=== PATIENT | female | born 1990 | race Caucasian/White ===

== ENCOUNTER 2016-08-24 17:55 | Emergency (ER) | payer BC ==
--- NOTE | 2016-08-24 19:00 | PD ---
HPI Travel History International Travel<30 Days: No Contact w/Intl Traveler<30Days: No Known Affected Area: No History of Present Illness HPI This patient is a 26-year-old 2 para 1 EDC is October 28, 2016 presently at 30 weeks and 5 days she presents with chief complaint of pressure in her suprapubic area for about 2 or 3 hours had contractions earlier but they stopped no ruptured membranes no vaginal bleeding the baby is active Patient has been walking around the mole for the past several hours care with Dr. Linn course is significant for anemia Increased urgency frequency hesitancy and dribbling patient does have a history of a UTI previously prior to No fever no chills no nausea no vomiting no back pain no gela contractions no discharge odors or itching no headaches or blurred vision no History Past Medical History Narrative Medical No known drug allergies history of mitral valve prolapse as a child resolved Obstetric History Obstetric History Normal spontaneous vaginal delivery 1 Past Surgical History Surgical History: No Previous Surgery Family History Family History: Negative Social History Alcohol Use: No Tobacco Use: No Substance Abuse: No Allergies-Medications Comments No known drug allergies Review of Systems General / Constitutional: No: Fever, Weight Gain, Weight Loss, Chills, Other Eyes: No: Diploplia, Blurred Vision, Visual changes, Pain, Photophobia, Other HENT: No: Headaches, Vertigo, Dental Difficulties, Lightheadedness, Other Cardiovascular: No: Irregular Rhythm, Chest Pain or Discomfort, Palpitations, Tachycardia, Syncope, Varicosities, Edema, Cyanosis, Other Respiratory: No: Cough, Short of Breath, Wheezing, Other Gastrointestinal: Abdominal Pain (as per history of present illness) Genitourinary: Urgency, Frequency, Hesitancy, Dribbling Musculoskeletal: No: Limited ROM, Weakness, Cramping, Edema, Pain, Other Neurologic: No: Weakness, Dizziness, Syncope, Focal Abnormalities, Coordination Problem, Headache, Slurred Speech, Seizures, Other Physical Exam Narrative GENERAL: Well-nourished, well-developed patient. Alert oriented 3 and cooperative in no acute distress SKIN: Warm and dry. HEAD: Normocephalic and atraumatic. EYES: No scleral icterus. No injection or drainage. ENT: No nasal drainage noted. Mucous membranes pink. Airway patent. NECK: Supple, trachea midline. No JVD. CARDIOVASCULAR: Regular rate and rhythm without murmurs, gallops, or rubs. RESPIRATORY: Breath sounds equal bilaterally. No accessory muscle use. ABDOMEN/GI: Gravid consistent with stated gestational age soft nontender no palpable contractions no epigastric or right upper quadrant tenderness mild tenderness over the right round ligament Gravid to [-] weeks size Fundal Height: [-] GENITOURINARY: Speculum exam is done no discharge no fluid no blood in the vagina the cervix is visibly closed External Genitalia: intact and normal in appearance BUS glands: [-] Cervix: [-] Posterior firm Dilatation: [-] 0 Effacement: [-] 0 Station: [-] Ballotable Presentation: [-] Vertex Membranes: [intact Mild uterine irritability FHT's: Category: [-] 1 Baseline: [-] 150 Reactive: [-] + Variability: [-] Moderate [id number] variability Decels: [-]0 EXTREMITIES: No cyanosis or edema. 2+ reflexes BACK: Nontender without obvious deformity. No CVA tenderness. NEUROLOGICAL: Awake and alert. Motor and sensory grossly within normal limits. Five out of 5 muscle strength in all muscle groups. Normal speech. Data Data Vital Signs Reviewed: Yes (blood pressure 121/62 pulse is 95 she is afebrile) MDM Medical Record Reviewed: No Interpretation(s) 26-year-old at 30 weeks and 5 days Not in labor Rule out UTI Uterine irritability possibly related to UTI [place] Skeletal skeletal pain Narrative Course / MDM Urine is negative cultures not indicated Category 1 tracing No contractions Cervix is closed on physical exam Plan External monitoring By mouth fluid hydration Urinalysis Reevaluation Physician Communication Spoke with Dr. Danielson who is director personal agrees with the evaluation and management will discharge patient home rest by mouth fluid hydration kick counts follow-up in the a.m. with her physician Diagnosis Diagnosis: Primary Impression: Musculoskeletal pain Additional Impressions: 30 weeks gestation of [place]' contraction Disposition: DISCHARGE HOME Condition: Stable Carly Roberson MD Aug 24, 2016 19:00
[2016-08-24 19:08] VITALS: TEMP 98
[2016-08-24 20:01] LABS: BLOOD, URINE NEG (NEG); COMMENT (UR) CULT NOT INDICATED; CULTURE IF INDICATED CULT NOT INDICATED; GLUCOSE,URINE NEG (NEG); KETONE, URINE 10 mg/dL (NEG); MUCUS URINE FEW /lpf (OCC); NITRITE,URINE NEG (NEG); SQUAMOUS EPITHELIAL CELL URINE 3 /hpf (0-5); URINE COLOR YELLOW (YELLW/STRAW)
== END 2016-08-24 20:20 | disposition home or self-care (01) ==
LOC: HOBED 17:55
DX: O47.03 False labor before 37 completed weeks of gestation, third trimester (principal); Z3A.30 30 weeks gestation of pregnancy; M79.1 Myalgia
CPT/HCPCS: 81001; 99284

== ENCOUNTER 2016-11-01 19:59 | Inpatient (IN) | payer BC ==
[2016-11-01] MEDS: LACTATED RINGER'S 1000 ML INJ 1,000 ML IV SCH (20:39)
[2016-11-01] MEDS ORDERED: SODIUM CHLOR 0.9% 1000 ML INJ 1,000 ML OTHER PRN (20:57)
[2016-11-01] MEDS ORDERED: LACTATED RINGER'S 1000 ML INJ 1,000 ML IV PRN (20:57)
[2016-11-01] MEDS ORDERED: MINERAL OIL 10 ML VIAL TOPICAL PRN (21:00)
[2016-11-01] MEDS ORDERED: OXYTOCIN 30 UNITS-500ML PREMIX 500 ML IV ONE (21:00)
[2016-11-01] MEDS ORDERED: MISOPROSTOL 25 MCG SUPP VAGINAL ONE (21:00)
[2016-11-01] MEDS ORDERED: CITRIC ACID-SODIUM CITRATE LIQ 30 ML UDC PO SCH (21:00)
[2016-11-01] MEDS ORDERED: ONDANSETRON HCL 4 MG/2 ML VIAL IV PRN (21:00)
[2016-11-01] MEDS ORDERED: SODIUM CHLORID 0.9% 500 ML INJ 500 ML IV PRN (21:00)
[2016-11-01] MEDS ORDERED: LIDOCAINE HCL 1% 50 ML VIAL INFIL PRN (21:00)
[2016-11-01] MEDS ORDERED: LIDOCAINE HCL 1% 50 ML VIAL I-DERMAL PRN (21:00)
[2016-11-01] MEDS ORDERED: ZOLPIDEM TARTRATE 5 MG TAB PO PRN (21:00)
[2016-11-01] MEDS ORDERED: SODIUM CHLOR 0.9% 1000 ML INJ 1,000 ML IV PRN (21:17)
[2016-11-01 21:40] LABS: AUTOMATED NEUTROPHIL # 7.8 TH/MM3 (1.8-7.7); BASOPHIL # 0.1 TH/MM3 (0-0.2); BASOPHIL % 0.6 % (0.0-2.0); EOSINOPHIL # 0.1 TH/MM3 (0-0.4); EOSINOPHIL % 0.5 % (0.0-4.0); HEMO FLAGS DIFF FINAL; LYMPH % 16.1 % (9.0-44.0); LYMPHOCYTE # 1.7 TH/MM3 (1.0-4.8); MEAN CELL VOLUME 78.7 FL (80.0-100.0); MEAN CORPUSCULAR HEMOGLOBIN 26.1 PG (27.0-34.0); MEAN CORPUSCULAR HGB CONC 33.2 % (32.0-36.0); MONO % 6.8 % (0.0-8.0); PLATELET COUNT 288 TH/MM3 (150-450); RED BLOOD COUNT 3.82 MIL/MM3 (4.00-5.30); RED CELL DISTRIBUTION WIDTH 14.4 % (11.6-17.2); WHITE BLOOD COUNT 10.3 TH/MM3 (4.0-11.0)
[2016-11-01 21:43] LABS: BACTERIA, URINE FEW /hpf; BLOOD, URINE NEG (NEG); COMMENT (UR) CULTURE INDICATED; CULTURE IF INDICATED CULTURE INDICATED; GLUCOSE,URINE NEG (NEG); KETONE, URINE NEG (NEG); MUCUS URINE MOD /lpf (OCC); NITRITE,URINE NEG (NEG); SQUAMOUS EPITHELIAL CELL URINE 6 /hpf (0-5); URINE COLOR YELLOW (YELLW/STRAW)
[2016-11-02] VITALS (90 sets, daily range): BP systolic 87–142; BP diastolic 46–79; PULSE 63–106; RESP 15–20; TEMP 97.6–98; O2SAT 97–100
[2016-11-02] MEDS ORDERED: MISOPROSTOL 25 MCG SUPP VAGINAL PRN (01:00)
[2016-11-02] MEDS: LACTATED RINGER'S 1000 ML INJ 1,000 ML IV SCH ×3 (01:10→14:09)
[2016-11-02] MEDS ORDERED: OXYTOCIN 30 UNITS-500ML PREMIX 500 ML IV SCH (07:00)
[2016-11-02] MEDS ORDERED: OXYTOCIN 30 UNITS-500ML PREMIX 500 ML ONE ×2 (07:16→16:37)
--- NOTE | 2016-11-02 08:58 | HHI.HP ---
HPI Chief Complaint iol at term Date Seen: November 02, 2016 Travel History International Travel<30 Days: No Contact w/Intl Traveler<30Days: No Known Affected Area: No History of Present Illness HPI 26 yo with iup at 40w5d by first trimester u/s. Here for iol at term. + FM, irreg ctx, no lof or vb. She has had 2 doses of misoprostol overnight. Uncomplicated pnc, 23 lb wt gain. Para: 1 : 2 History Past Medical History Narrative Medical mild mvp Obstetric History Obstetric History G! F 38 wk 6 lb 7oz Past Surgical History Narrative Surgical wisdom tooth extraction Family History Family History: Negative Social History Alcohol Use: No Tobacco Use: No Substance Abuse: No Allergies-Medications (Allergen,Severity, Reaction): Coded Allergies: No Known Allergies (Unverified , 11/01/16) Review of Systems General / Constitutional: No: Fever, Weight Gain, Chills, Other Eyes: No: Diploplia, Blurred Vision, Visual changes, Pain, Photophobia HENT: No: Headaches, Vertigo, Lightheadedness Cardiovascular: No: Irregular Rhythm, Chest Pain or Discomfort, Palpitations, Tachycardia, Syncope, Varicosities, Edema, Cyanosis Respiratory: No: Cough, Short of Breath, Other Gastrointestinal: No: Nausea, Vomiting, Diarrhea Genitourinary: No: Decreased Urinary Output, Oliguria Musculoskeletal: No: Limited ROM, Weakness, Cramping, Edema, Pain Skin: No Rash, No Itching, No Dryness, No Lumps, No Change in Pigmentation, No Change in Nails, No Alopecia, No Lesions Neurologic: No: Weakness, Dizziness, Syncope, Focal Abnormalities, Coordination Problem, Headache, Slurred Speech, Seizures Psychiatric: No: Depression, Suicidal Ideations, Homicidal Ideation Endocrine: No: Heat Intolerance, Cold Intolerance, Polydipsia, Polyuria, Other Physical Exam Vital Signs Date Time Temp Pulse Resp B/P Pulse Ox O2 Delivery O2 Flow Rate FiO2 11/02/16 08:11 18 11/02/16 08:02 77 103/68 11/02/16 07:28 18 11/02/16 07:28 79 103/67 11/02/16 07:27 97.6 11/02/16 04:34 18 11/02/16 04:34 98.0 11/02/16 04:34 82 98/46 11/02/16 00:25 97.7 18 11/02/16 00:25 78 104/61 Narrative GENERAL: Well-nourished, well-developed patient. SKIN: Warm and dry. HEAD: Normocephalic and atraumatic. EYES: No scleral icterus. No injection or drainage. ENT: No nasal drainage noted. Mucous membranes pink. Airway patent. NECK: Supple, trachea midline. No JVD. CARDIOVASCULAR: Regular rate and rhythm without murmurs, gallops, or rubs. RESPIRATORY: Breath sounds equal bilaterally. No accessory muscle use. ABDOMEN/GI: Abdomen soft, non-tender, bowel sounds present, no rebound, no guarding Gravid to 40 weeks size Fundal Height: [-] GENITOURINARY: External Genitalia: intact and normal in appearance BUS glands: [-] Cervix: 3-4/50/-2 post, medium consistency, arom blood tinged Presentation:cep Membranes:arom 0905 Uterine Contractions: irreg FHT's: Category: Currently Cat I, had 3 late decels, previously. Now reactive strip EXTREMITIES: No cyanosis or edema. BACK: Nontender without obvious deformity. No CVA tenderness. NEUROLOGICAL: Awake and alert. Motor and sensory grossly within normal limits. Five out of 5 muscle strength in all muscle groups. Normal speech. Data Data Vital Signs Reviewed: Yes Orders Admit To Inpatient (11/01/16 ) Vital Signs (Adult) .Per protocol (11/01/16 20:57) Activity Oob Ad Shadia (11/01/16 20:57) Heart (11/01/16 20:57) Amnioinfusion (11/01/16 20:57) Urinary Catheter Management .ONCE (11/01/16 20:57) Diet Liquid (11/02/16 Breakfast) Lactated Ringer's 1000 Ml Inj (Lr 1000 M (11/01/16 20:57) Lactated Ringer's 1000 Ml Inj (Lr 1000 M (11/01/16 20:57) Sodium Chlorid 0.9% 500 Ml Inj (Ns 500 M (11/01/16 21:00) Sodium Chlor 0.9% 1000 Ml Inj (Ns 1000 M (11/01/16 21:17) Lidocaine 1% Inj (50 Ml) (Xylocaine 1% I (11/01/16 21:00) Citric Acid-Sodium Citrate Liq (Bicitra (11/01/16 21:00) Ondansetron Inj (Zofran Inj) (11/01/16 21:00) Fentanyl Inj (Fentanyl Inj) (11/01/16 21:00) Fentanyl Inj (Fentanyl Inj) (11/01/16 21:00) Complete Blood Count With Diff (11/01/16 20:57) Hold Clot (11/01/16 20:57) Abo/Rh Blood Type (11/01/16 20:57) Urinalysis - C+S If Indicated (11/01/16 20:57) Resp Oxygen Non Rebreathe Mask (11/01/16 ) ^ Epidural / Intrathecal Infus (11/01/16 20:57) Oxytocin 30 Units-500ml Premix (Pitocin (11/01/16 21:00) Lidocaine 1% Inj (50 Ml) (Xylocaine 1% I (11/01/16 21:00) Light Mineral Oil (Muri-Lube Oil) (11/01/16 21:00) Activity Oob Ad Shadia (11/01/16 20:57) ^ Labor Induction (11/01/16 20:57) ^ Vaginal Insert (11/01/16 20:57) ^ Vaginal Lavage (11/01/16 20:57) Heart (11/01/16 20:57) Sodium Chlor 0.9% 1000 Ml Inj (Ns 1000 M (11/01/16 20:57) Misoprostol Supp (Cytotec Supp) (11/01/16 21:00) Misoprostol Supp (Cytotec Supp) (11/02/16 01:00) Zolpidem (Ambien) (11/01/16 21:00) Inpatient Certification (11/01/16 ) Specimen To Be Collected PRN (11/01/16 20:57) Urine Culture (11/01/16 20:21) ^ Non Stress Test (11/02/16 06:52) Response To Medication .Post New Med Administration, Reaction (11/02/16 06:52) ^ Discontinue Medication (11/02/16 06:52) Oxytocin 30 Units-500ml Premix (Pitocin (11/02/16 07:00) Oxytocin 30 Units-500ml Premix (Pitocin (11/02/16 07:16) Labs Laboratory Tests Test 11/01/16 11/01/16 20:21 20:40 Urine Color YELLOW Urine Turbidity HAZY Urine pH 6.0 Urine Specific [place] 1.032 Urine Protein 30 Urine Glucose (UA) NEG Urine Ketones NEG Urine Occult Blood NEG Urine Nitrite NEG Urine Bilirubin NEG Urine Urobilinogen 2.0 Urine Leukocyte Esterase LARGE Urine RBC 1 Urine WBC 39 Urine Squamous Epithelial 6 Cells Urine Bacteria FEW Urine Mucus MOD Microscopic Urinalysis Comment CULTURE INDICATED White Blood Count 10.3 Red Blood Count 3.82 Hemoglobin 10.0 Hematocrit 30.0 Mean Corpuscular Volume 78.7 Mean Corpuscular Hemoglobin 26.1 Mean Corpuscular Hemoglobin 33.2 Concent Red Cell Distribution Width 14.4 Platelet Count 288 Mean Platelet Volume 8.2 Neutrophils (%) (Auto) 76.0 Lymphocytes (%) (Auto) 16.1 Monocytes (%) (Auto) 6.8 Eosinophils (%) (Auto) 0.5 Basophils (%) (Auto) 0.6 Neutrophils # (Auto) 7.8 Lymphocytes # (Auto) 1.7 Monocytes # (Auto) 0.7 Eosinophils # (Auto) 0.1 Basophils # (Auto) 0.1 CBC Comment DIFF FINAL Differential Comment Blood Type AB POSITIVE Band and Hold Date/Time Procedure Status Source Growth 11/01/16 20:21 Urine Culture Received Urine Clean Catch Pending Assessment/Plan Assessment and Plan 26yo with iup at 40w5d desired iol at term 1) IOL- misoprostol suppository overnight, pitocin was started but pt had late decel. Currently reactive strip. Arom performed, will start pitocin 2) lsil pap- pp repeat 3) gbs neg 4) mild MVP- no prophy indicated 5) fetus- female, approx 8 lb based on 34wk u/s Discharge Planning ppd2 Vane Linn MD November 02, 2016 08:58 Vane Linn MD November 02, 2016 08:58
[2016-11-02] MEDS ORDERED: fentaNYL 2MCG-BUPIV 0.125% INJ 100 ML ONE (10:06)
[2016-11-02] MEDS ORDERED: ePHEDrine/NS 25 MG/5 ML SYR ONE (10:07)
[2016-11-02] MEDS ORDERED: LACTATED RINGER'S 1000 ML INJ 1,000 ML IV ONE (14:52)
[2016-11-02] MEDS ORDERED: TERBUTALINE INJ 1 MG/ML AMP ONE (14:52)
--- NOTE | 2016-11-02 14:59 | PD.LABORPN ---
Subjective Subjective pt feeling comfortable Objective Vital Signs Vital Signs Date Time Temp Pulse Resp B/P Pulse Ox O2 Delivery O2 Flow Rate FiO2 11/02/16 14:30 98 112/74 11/02/16 14:15 82 113/68 11/02/16 14:01 84 106/57 11/02/16 13:55 81 11/02/16 13:50 93 11/02/16 13:46 81 114/67 11/02/16 13:45 80 11/02/16 13:44 80 104/67 11/02/16 13:40 95 11/02/16 13:35 76 11/02/16 13:32 97.8 11/02/16 13:32 20 11/02/16 13:31 73 92/60 11/02/16 13:30 65 11/02/16 13:25 68 11/02/16 13:20 73 11/02/16 13:16 66 103/64 11/02/16 13:15 69 11/02/16 13:10 67 11/02/16 13:05 74 11/02/16 13:01 80 113/66 11/02/16 13:00 63 11/02/16 12:50 75 11/02/16 12:46 66 102/60 11/02/16 12:45 76 87/54 11/02/16 12:45 93 11/02/16 12:40 80 11/02/16 12:35 101 11/02/16 12:30 96 103/60 11/02/16 12:30 71 11/02/16 12:25 79 11/02/16 12:20 81 11/02/16 12:15 75 97/58 11/02/16 12:15 83 11/02/16 12:10 71 11/02/16 12:05 88 11/02/16 12:02 92 97/64 11/02/16 12:00 76 11/02/16 12:00 77 98/53 11/02/16 11:55 85 101/57 11/02/16 11:55 77 11/02/16 11:54 20 11/02/16 11:50 81 11/02/16 11:46 75 102/59 11/02/16 11:45 79 11/02/16 11:40 74 11/02/16 11:35 75 11/02/16 11:30 89 5/25/17 11:30 84 112/79 11/02/16 11:30 100 11/02/16 11:25 99 11/02/16 11:25 88 11/02/16 11:20 79 11/02/16 11:15 71 11/02/16 11:13 78 102/55 11/02/16 11:12 74 11/02/16 11:12 100/55 11/02/16 11:11 80 11/02/16 11:11 142/71 11/02/16 11:10 72 11/02/16 11:05 84 112/67 11/02/16 11:05 76 11/02/16 11:00 83 106/68 11/02/16 11:00 80 11/02/16 10:56 86 104/65 11/02/16 10:55 79 11/02/16 10:50 87 11/02/16 10:50 85 114/65 11/02/16 10:49 97.9 11/02/16 10:48 80 109/61 11/02/16 10:46 20 11/02/16 10:45 84 119/68 11/02/16 10:45 80 11/02/16 10:40 76 110/61 11/02/16 10:40 75 11/02/16 10:35 78 105/77 11/02/16 10:35 74 11/02/16 10:34 80 119/69 11/02/16 10:31 91 115/69 11/02/16 10:30 96 11/02/16 10:29 94 117/72 11/02/16 10:25 82 11/02/16 10:22 75 114/50 11/02/16 09:50 98.0 11/02/16 09:49 18 11/02/16 09:48 71 113/77 11/02/16 08:52 87 107/71 11/02/16 08:52 18 11/02/16 08:11 18 11/02/16 08:02 77 103/68 11/02/16 07:28 18 11/02/16 07:28 79 103/67 11/02/16 07:27 97.6 Objective Pelvic Exam: ruptured, IFSE and iups in place Uterine Contractions: [-] FHT's: Category: II, late and prolonged variables , maintained variability, occasional accels. Assessment/Plan Assessment and Plan SVE /-1, Cat II tracing, non-responsive to fluid bolus, position change, AI. Discussed remote from delivery and Cat II tracing, intolerance of labor. Pitocin has been off, contractions are inadequate MVU. Discussed CD safest option at this point. r/b/a discussed with family, family in agreement with plan of care. Will give dose of terbutaline to stop contractions. Vane Linn MD November 02, 2016 14:58
[2016-11-02] MEDS ORDERED: ceFAZolin INJ 1,000 MG VIAL ONE (15:05)
[2016-11-02] MEDS ORDERED: OXYTOCIN 10 UNIT/ML AMP ONE (15:05)
[2016-11-02] MEDS ORDERED: ACETAMINOPHEN 1000 MG/100 ML VIAL IV ONE ×2 (15:15→17:00)
[2016-11-02] MEDS ORDERED: LACTATED RINGER'S 1000 ML INJ 1,000 ML IV SCH ×2 (15:22→21:20)
[2016-11-02] MEDS ORDERED: MEPERIDINE HCL 25 MG/ML VIAL ONE (15:46)
[2016-11-02 15:49] LABS: BLOOD GAS BASE EXCESS -2.4 mmol/L (-2-2); BLOOD GAS O2 HGB SATURATION 36 % (90-100); CORD BLOOD GAS HCO3 23 mmol/L (21-29); CORD BLOOD GAS PCO2 47 mmHG (34-78); CORD BLOOD GAS PH 7.31 (7.14-7.42); CORD BLOOD GAS PO2 20 mmHG (3.0-40.0); DRAW SITE CORD BLOOD; STAT NO
[2016-11-02] MEDS ORDERED: MORPHINE SULFATE PF 5 MG/10 ML VIAL ONE (16:15)
[2016-11-02] MEDS ORDERED: ONDANSETRON HCL 4 MG/2 ML VIAL ONE (16:16)
--- NOTE | 2016-11-02 16:20 | PD.OB.DELI ---
Procedure Note Section Procedure Pre Op Diagnosis: (1) Non-reassuring electronic monitoring tracing Post Op Diagnosis: (1) Non-reassuring electronic monitoring tracing Performed by Vane Linn Procedure: Primary Low Transverse Sec Indication for delivery: Nonreassuring heart tracing (Cat II remote from delivery), malposition (LOT presentation) Informed consent obtained: For anesthesia, For procedure Confirmed correct: Patient, Procedure, Site, Time-out taken Anesthesia: Epidural Medication prior to procedure: As documented in eMAR Monitoring during procedure: Blood pressure monitoring, Pulse oximetry Urinary catheter: Inserted using sterile technique, To dependent drainage, ml urine output (100) Sterile preparation: With 2% chlorexidine (Hibiclens) Position: Supine with wedge to right side, Supine with safety belt applied Operative Features Skin Incision: Pfannenstiel Uterine Incision: Low transverse w/knife / blunt ext Membranes Ruptured: Amount of liquid (mod), Appearance of fluid (clear) Presentation: Other (LOT) Delivery of infant: Uneventful Infant: Female One Minute : 8 Five Minute : 9 Weight: 7 lb 15 oz Status of : Viable, Cord blood, Umbilical cord, Nursery present Placenta delivered: Retained (cord an part of placenta removed with cord traction and uterine massage, from larger remaining portion of placenta. Remainnig placenta removed manually. ), Sent to pathology Estimated blood loss: 600ml Procedure tolerated: Well Maternal Condition: Stable Baby Complications: Other (nuchal cord x 1) Condition: Stable Procedure in detail dictation Vane Linn MD November 02, 2016 16:20
[2016-11-02] MEDS ORDERED: HYDROmorphone HCL PF 2 MG/ML VIAL ONE (16:27)
[2016-11-02] MEDS ORDERED: SIMETHICONE 80 MG CHEWABLE TAB PO PRN (16:30)
[2016-11-02] MEDS ORDERED: SODIUM CHLORIDE 0.9% FLUSH 10 ML FLUSH IV FLUSH PRN (16:30)
[2016-11-02] MEDS ORDERED: oxyCODONE/ACETAMINOPHEN 5 MG/325 MG TAB PO PRN ×2 (16:30)
[2016-11-02] MEDS ORDERED: CITRIC ACID-SODIUM CITRATE LIQ 30 ML UDC PO SCH (16:30)
[2016-11-02] MEDS ORDERED: OXYTOCIN 30 UNITS-500ML PREMIX 500 ML IV ONE (16:30)
[2016-11-02] MEDS ORDERED: ACETAMINOPHEN 325 MG TAB PO PRN (16:30)
[2016-11-02] MEDS ORDERED: ZOLPIDEM TARTRATE 5 MG TAB PO PRN (16:30)
[2016-11-02] MEDS ORDERED: EPIDURAL-DIPHENHYDRAMINE HCL 50 MG CAP PO PRN (18:15)
[2016-11-02] MEDS ORDERED: EPIDURAL-DO NOT ADMINISTER ANTICOAGULANTS PRN (18:15)
[2016-11-02] MEDS ORDERED: EPIDURAL-DIPHENHYDRAMINE HCL 50 MG/ML VIAL IV PUSH PRN (18:15)
[2016-11-02] MEDS ORDERED: EPIDURAL-NALOXONE HCL 0.4 MG/ML AMP IV PRN (18:15)
[2016-11-02] MEDS ORDERED: EPIDURAL-NO SYSTEMIC NARCOTICS PRN (18:15)
[2016-11-02] MEDS: ONDANSETRON HCL 4 MG/2 ML VIAL IV PUSH PRN (22:10)
[2016-11-02] MEDS: ACETAMINOPHEN 1000 MG/100 ML VIAL IV SCH (23:01)
[2016-11-03] VITALS: BP 127/83; PULSE 81; RESP 16; TEMP 98.4
[2016-11-03 02:00] VITALS: RESP 16
[2016-11-03] MEDS ORDERED: OXYTOCIN 30 UNITS-500ML PREMIX 500 ML IV PRN (02:30)
[2016-11-03 04:00] VITALS: BP 116/69; PULSE 69; RESP 18; TEMP 98.6
[2016-11-03] MEDS: ONDANSETRON HCL 4 MG/2 ML VIAL IV PUSH PRN ×2 (04:06→15:17)
[2016-11-03 05:55] LABS: AUTOMATED NEUTROPHIL # 14.9 TH/MM3 (1.8-7.7); BASOPHIL # 0.1 TH/MM3 (0-0.2); BASOPHIL % 0.4 % (0.0-2.0); HEMATOCRIT 26.8 % (35.0-46.0); HEMO FLAGS DIFF FINAL; LYMPH % 7.2 % (9.0-44.0); LYMPHOCYTE # 1.2 TH/MM3 (1.0-4.8); MEAN CELL VOLUME 78.8 FL (80.0-100.0); MONO % 4.3 % (0.0-8.0); NEUT % 88.1 % (16.0-70.0); PLATELET COUNT 214 TH/MM3 (150-450); RED CELL DISTRIBUTION WIDTH 14.1 % (11.6-17.2)
[2016-11-03] MEDS: ACETAMINOPHEN 1000 MG/100 ML VIAL IV SCH ×2 (07:48→15:00)
[2016-11-03 07:50] VITALS: BP 115/65; PULSE 72; RESP 18; TEMP 97.6
--- NOTE | 2016-11-03 07:57 | MP ---
cc: VANE LINN MD DATE OF SURGERY: 11/02/2016 PREOPERATIVE DIAGNOSIS Non-reassuring electric monitoring, remote from delivery. malposition, LOT presentation. POSTOPERATIVE DIAGNOSIS Non-reassuring electric monitoring, remote from delivery. malposition, LOT presentation. SURGEON Vane Linn MD PSYCHOPAEDIC NURSE [place] [facility]. PROCEDURE Primary low transverse section. INDICATIONS The patient is a 26-year-old, -0-0-1, with an intrauterine at 40 weeks and 5 days who desired elective induction of labor due to term and family coming into town. The risks, benefits and alternatives of induction were discussed. She did have a favorable Burnham score, cervix being 2-3 cm dilated, 50% effaced, -2 station. Her induction started with misoprostol vaginal suppository 25 mcg x2 and subsequently Pitocin and AROM. The fetus did not tolerated Pitocin well, developing decelerations and subsequent prolonged variable decelerations despite discontinuing Pitocin. The variable decelerations were becoming more prolonged, fetus did have maintained variability that was moderate and some accelerations. Discussion was held with the patient and her family that she was remote from delivery and had a category II tracing. discussed if Cat III tracing develope, this would necessitate an emergent delivery. Discussed intolerance of labor. The family did elect to proceed with primary delivery. The risks were reviewed. Consents were previously signed on chart. ANESTHESIA Epidural. Consents were obtained for anesthesia and procedure. A timeout was taken to confirm the correct patient, site and procedure to be performed. Prophylactic antibiotic, Ancef one gram IV, was given preincision. DVT prophylaxis with SCDs on bilateral extremities. ESTIMATED BLOOD LOSS 600 mL. IV FLUIDS Two liters of lactated Ringer's. URINE OUTPUT 100 mL. INTRAOPERATIVE FINDINGS Delivery of a viable female infant, Apgars 8 and 9 at one minute and five minutes respectively, weight 7 pounds 15 ounces. Nuchal cord x1 reduced prior to delivery of body. Maternal findings of a small 1 cm posterior fundal fibroid, normal tubes and ovaries bilaterally. Placenta grade III with multiple calcifications. Placenta was removed with uterine massage and cord traction. A small portion of the placenta and cord from the larger remaining portion of placenta. The remaining portion of placenta was removed manually and sent for pathology. Cord blood and cord gases were collected. Amniotic fluid was clear. CONDITION Stable, transferred to PACU. Procedure well-tolerated. PROCEDURE IN DETAIL After reviewing informed consent the patient was taken to the operating room where epidural was re-dosed. Consents were signed on chart. A timeout was performed. A Jerez had already been placed in the room under sterile conditions. The abdomen was prepped and draped in normal sterile fashion. Anesthesia was confirmed to be adequate. A Pfannenstiel skin incision was made with a scalpel, carried down to underlying layer of fascia with the Bovie. The fascia was incised in the midline with the Bovie and the incision was extended bilaterally with Terry scissors. The superior edge of the fascial incision was grasped with Bridget clamps, elevated and the rectus muscles dissected sharply and bluntly. The same was repeated on the inferior aspect of the fascia. The rectus muscles were in the midline bluntly and the peritoneum was entered bluntly. A bladder blade was then inserted. A bladder flap was created with Metzenbaum scissors and further developed digitally. A low transverse uterine segment incision was made with a scalpel and extended bluntly with in a cephalic caudal fashion. The head was flexed and brought to the level of the hysterotomy. Fundal pressure was used to deliver the head. A cord was noted and the cord was reduced. The rest of the body readily followed. The baby was bulb suctioned. 45 seconds elapsed prior to clamping the cord. A cord segment was sent for pH. Cord blood was collected. The placenta did require manual removal (see intraoperative findings) and was sent to pathology. The uterus was then exteriorized. Pitocin was started immediately after delivery of the infant. The remaining portion of the placenta was removed. A hand was placed between the endometrium and the placenta and membranes were gently followed out with ring forceps until completely removed. Several moist laparotomy sponges were used to clear out the uterus of any debris and membranes. The uterus was repaired with #1 chromic in a running locked fashion followed by an imbricating layer. The right angle had some oozing and small hematoma and this was controlled with two [id number] on the edges of the hematoma. The posterior cul-de-sac was irrigated and suctioned. The uterus was examined. The hematoma was noted not to extend beyond 1.5 cm. The uterus was returned to the abdomen. The anterior cul-de-sac was irrigated and suctioned. Good hemostasis was noted. The peritoneum was closed with 2-0 chromic in a running fashion. The fascia was closed with #1 Vicryl in a running fashion. The subcutaneous tissue was irrigated and hemostasis obtained with the Bovie. Interrupted 2-0 chromic was used to reapproximate the subcutaneous layer. Monocryl was used to close the skin with subcuticular stitches. Steri-Strips were placed followed by a sterile dressing. The patient tolerated the procedure well. Vane Linn MD PE/RENE /4:28 PM /7:33 AM MTDD
--- NOTE | 2016-11-03 08:09 | HHI.OB ---
Subjective Post Operative Day: 1 Remarks some N/V last night, relieved with zofran Objective Vitals/I&O Vital Signs Date Time Temp Pulse Resp B/P Pulse Ox O2 Delivery O2 Flow Rate FiO2 11/03/16 04:00 98.6 69 18 116/69 11/03/16 02:00 16 11/03/16 00:00 81 127/83 11/03/16 00:00 16 11/03/16 00:00 98.4 11/02/16 20:55 18 11/02/16 20:00 97.6 87 18 123/78 11/02/16 17:31 111/66 11/02/16 17:29 98.0 11/02/16 17:22 16 11/02/16 17:19 94 113/56 100 11/02/16 17:07 15 11/02/16 17:07 16 11/02/16 17:04 86 99 11/02/16 17:03 125/63 11/02/16 16:57 96 121/64 99 11/02/16 16:56 16 11/02/16 16:56 15 11/02/16 16:35 102 16 135/66 97 11/02/16 16:30 97.6 106 16 131/71 11/02/16 16:30 97 11/02/16 14:45 94 110/64 11/02/16 14:30 98 112/74 11/02/16 14:15 82 113/68 11/02/16 14:01 84 106/57 11/02/16 13:55 81 11/02/16 13:50 93 11/02/16 13:46 81 114/67 11/02/16 13:45 80 11/02/16 13:44 80 104/67 11/02/16 13:40 95 11/02/16 13:35 76 11/02/16 13:32 97.8 11/02/16 13:32 20 11/02/16 13:31 73 92/60 11/02/16 13:30 65 11/02/16 13:25 68 11/02/16 13:20 73 11/02/16 13:16 66 103/64 11/02/16 13:15 69 11/02/16 13:10 67 11/02/16 13:05 74 11/02/16 13:01 80 113/66 11/02/16 13:00 63 11/02/16 12:50 75 11/02/16 12:46 66 102/60 11/02/16 12:45 76 87/54 11/02/16 12:45 93 11/02/16 12:40 80 11/02/16 12:35 101 11/02/16 12:30 96 103/60 11/02/16 12:30 71 11/02/16 12:25 79 11/02/16 12:20 81 11/02/16 12:15 75 97/58 11/02/16 12:15 83 11/02/16 12:10 71 11/02/16 12:05 88 11/02/16 12:02 92 97/64 11/02/16 12:00 76 11/02/16 12:00 77 98/53 11/02/16 11:55 85 101/57 11/02/16 11:55 77 11/02/16 11:54 20 11/02/16 11:50 81 11/02/16 11:46 75 102/59 11/02/16 11:45 79 11/02/16 11:40 74 11/02/16 11:35 75 11/02/16 11:30 89 11/02/16 11:30 84 112/79 11/02/16 11:30 100 11/02/16 11:25 99 11/02/16 11:25 88 11/02/16 11:20 79 11/02/16 11:15 71 11/02/16 11:13 78 102/55 11/02/16 11:12 74 11/02/16 11:12 100/55 11/02/16 11:11 80 11/02/16 11:11 142/71 11/02/16 11:10 72 11/02/16 11:05 84 112/67 11/02/16 11:05 76 11/02/16 11:00 83 106/68 11/02/16 11:00 80 11/02/16 10:56 86 104/65 11/02/16 10:55 79 11/02/16 10:50 87 11/02/16 10:50 85 114/65 11/02/16 10:49 97.9 11/02/16 10:48 80 109/61 11/02/16 10:46 20 5/25/17 10:45 84 119/68 11/02/16 10:45 80 11/02/16 10:40 76 110/61 11/02/16 10:40 75 11/02/16 10:35 78 105/77 11/02/16 10:35 74 11/02/16 10:34 80 119/69 11/02/16 10:31 91 115/69 11/02/16 10:30 96 11/02/16 10:29 94 117/72 11/02/16 10:25 82 11/02/16 10:22 75 114/50 11/02/16 09:50 98.0 11/02/16 09:49 18 11/02/16 09:48 71 113/77 11/02/16 08:52 87 107/71 11/02/16 08:52 18 11/02/16 08:11 18 Result Diagram: 11/03/16 0506 Objective Remarks GENERAL: Well-nourished, well-developed patient. CARDIOVASCULAR: Regular rate and rhythm without murmurs, gallops, or rubs. RESPIRATORY: Breath sounds equal bilaterally. No accessory muscle use. ABDOMEN/GI: Abdomen soft, non-tender, bowel sounds present. Incision: dressing Clean, dry and intact. Fundus: Firm, non-tender at umbilicus. GENITOURINARY: Light to moderate bleeding. EXTREMITIES: No cyanosis or edema, non-tender, without signs of DVT. Medications and IVs Current Medications Medications (Trade) Dose Ordered Sig/Florentin Route Start Time Stop Time Status Last Admin (Lr 1000 ml Inj) 1,000 ml @ 100 mls/hr Q10H IV 11/02/16 21:20 11/03/16 17:19 (NS Flush) 2 ml BID IV FLUSH 11/02/16 21:00 (NS Flush) 2 ml UNSCH PRN IV FLUSH 11/02/16 16:30 (Mylicon Chew) 80 mg QID PRN PO 11/02/16 16:30 (Tylenol) 650 mg Q6H PRN PO 11/02/16 16:30 (Motrin) 600 mg Q6H PRN PO 11/02/16 16:30 (Percocet 5-325 Mg) 1 tab Q4H PRN PO 11/02/16 16:30 (Percocet 5-325 Mg) 2 tab Q4H PRN PO 11/02/16 16:30 (Micheline-Colace) 2 tab Q12H PRN PO 11/02/16 16:30 (Ambien) 5 mg HS PRN PO 11/02/16 16:30 (M-M-R Ii Inj) 0.5 ml ONCE ONCE SQ 11/03/16 16:00 11/03/16 16:01 (Boostrix Inj) 0.5 ml ONCE ONCE IM 11/03/16 16:00 11/03/16 16:01 (Zofran Inj) 4 mg Q6H PRN IV PUSH 11/02/16 16:30 11/03/16 04:06 Miscellaneous Information NO SYSTEMIC NARCOTICS TO BE GIVEN FO... 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
[2016-11-03] MEDS: SODIUM CHLORIDE 0.9% FLUSH 10 ML FLUSH IV FLUSH SCH (09:00)
[2016-11-03] MEDS: IBUPROFEN 600 MG TAB PO PRN ×2 (15:17→22:38)
[2016-11-03 15:28] VITALS: BP 107/60; PULSE 68; RESP 16; TEMP 97.8
[2016-11-03] MEDS ORDERED: DIPHTH/TETANUS/ACEL PERTUSSIS (BOOSTER) 0.5 ML VIAL/PFS IM ONE (16:00)
[2016-11-03] MEDS ORDERED: MEASLES, MUMPS, RUBELLA VACCINE 0.5 ML VIAL SQ ONE (16:00)
[2016-11-03 20:25] VITALS: BP 102/56; PULSE 75; RESP 18; TEMP 98.5
[2016-11-03] MEDS: DOCUSATE SODIUM 50 MG/SENNA 8.6 MG TAB PO PRN (22:38)
[2016-11-04 04:30] VITALS: BP 113/64; PULSE 70; RESP 18; TEMP 97.8
[2016-11-04] MEDS: IBUPROFEN 600 MG TAB PO PRN ×3 (04:40→19:29)
[2016-11-04 08:00] VITALS: BP 112/67; PULSE 74; RESP 20; TEMP 98.5; O2SAT 98
[2016-11-04] MEDS: SODIUM CHLORIDE 0.9% FLUSH 10 ML FLUSH IV FLUSH SCH (09:00)
--- NOTE | 2016-11-04 09:14 | HHI.OB ---
Subjective Post Operative Day: 2 Remarks no complaints, Objective Vitals/I&O Vital Signs Date Time Temp Pulse Resp B/P Pulse Ox O2 Delivery O2 Flow Rate FiO2 11/04/16 04:30 97.8 70 18 113/64 11/03/16 20:25 98.5 75 18 102/56 11/03/16 15:28 97.8 16 11/03/16 15:28 68 107/60 Result Diagram: 11/03/16 0506 Objective Remarks GENERAL: Well-nourished, well-developed patient. CARDIOVASCULAR: Regular rate and rhythm without murmurs, gallops, or rubs. RESPIRATORY: Breath sounds equal bilaterally. No accessory muscle use. ABDOMEN/GI: Abdomen soft, non-tender, bowel sounds present. Incision: Clean, dry and intact. Fundus: Firm, non-tender at umbilicus. GENITOURINARY: Light to moderate bleeding. EXTREMITIES: No cyanosis or edema, non-tender, without signs of DVT. Medications and IVs Current Medications Medications (Trade) Dose Ordered Sig/Florentin Route Start Time Stop Time Status Last Admin (NS Flush) 2 ml BID IV FLUSH 11/02/16 21:00 (NS Flush) 2 ml UNSCH PRN IV FLUSH 11/02/16 16:30 (Mylicon Chew) 80 mg QID PRN PO 11/02/16 16:30 (Tylenol) 650 mg Q6H PRN PO 11/02/16 16:30 (Motrin) 600 mg Q6H PRN PO 11/02/16 16:30 11/04/16 04:40 (Percocet 5-325 Mg) 1 tab Q4H PRN PO 11/02/16 16:30 11/03/16 15:18 (Percocet 5-325 Mg) 2 tab Q4H PRN PO 11/02/16 16:30 (Micheline-Colace) 2 tab Q12H PRN PO 11/02/16 16:30 11/03/16 22:38 (Ambien) 5 mg HS PRN PO 11/02/16 16:30 (Zofran Inj) 4 mg Q6H PRN IV PUSH 11/02/16 16:30 11/03/16 15:17 Assessment/Plan Assessment and Plan 26yo with iup at 40w5d desired iol at term, S/P primary LSTC for NRFHR, POD#2 1) attempted IOL at term 2) lsil pap- pp repeat 3) gbs neg 4) mild MVP- no prophy indicated 5) baby- female, needs to stay until AM per peds Discharge Planning pod3 Attending Attestation pt seen by Marquita Marcelino MD November 04, 2016 09:13
[2016-11-04] MEDS ORDERED: OXYC1TAB63 PO (09:28)
--- NOTE | 2016-11-04 09:29 | HHI.DCPOC ---
Discharge Care Plan Your Health Problems Are: Pelvic pain Report Symptoms to Your Doctor -Temperate above 100.5 degrees -Redness, of incision or excessive or foul smelling drainage -Unusual pain or calf pain -Increased vaginal bleeding -Painful or difficulty urinating -Feelings of extreme sadness or anxiety after 2 weeks Goals to Promote Your Health * To prevent worsening of your condition and complications * To maintain your health at the optimal level Directions to Meet Your Goals Take your medications as prescribed Follow your dietary instruction Follow activity as directed Ensure plenty of rest for recovery Drink fluids for hydration Keep your appointments as scheduled Take your immunizations and boosters as scheduled If your symptoms worsen call your PCP, if no PCP go to Urgent Care Center or Emergency Room Smoking is Dangerous to Your Health. Avoid second hand smoke Call the 24-hour crisis hotline for domestic abuse at Marquita Grider MD November 04, 2016 09:29
[2016-11-04 22:00] VITALS: BP 121/68; PULSE 68; RESP 16; TEMP 98.2
[2016-11-04] MEDS: DOCUSATE SODIUM 50 MG/SENNA 8.6 MG TAB PO PRN (22:12)
[2016-11-05] MEDS: IBUPROFEN 600 MG TAB PO PRN ×2 (02:39→08:50)
[2016-11-05 08:45] VITALS: BP 117/75; PULSE 66; RESP 16; TEMP 98.4
[2016-11-05] MEDS: DOCUSATE SODIUM 50 MG/SENNA 8.6 MG TAB PO PRN (08:48)
--- NOTE | 2016-11-05 10:04 | HHI.OB ---
Subjective Post Operative Day: 3 Remarks baby gaining wt, pt w/o complaints Objective Vitals/I&O Vital Signs Date Time Temp Pulse Resp B/P Pulse Ox O2 Delivery O2 Flow Rate FiO2 11/05/16 08:45 98.4 66 16 117/75 11/04/16 22:00 98.2 68 16 121/68 Result Diagram: 11/03/16 0506 Objective Remarks GENERAL: Well-nourished, well-developed patient. CARDIOVASCULAR: Regular rate and rhythm without murmurs, gallops, or rubs. RESPIRATORY: Breath sounds equal bilaterally. No accessory muscle use. ABDOMEN/GI: Abdomen soft, non-tender, bowel sounds present. Incision: Clean, dry and intact. Fundus: Firm, non-tender at umbilicus. GENITOURINARY: Light to moderate bleeding. EXTREMITIES: No cyanosis or edema, non-tender, without signs of DVT. Medications and IVs Current Medications Medications (Trade) Dose Ordered Sig/Florentin Route Start Time Stop Time Status Last Admin (NS Flush) 2 ml BID IV FLUSH 11/02/16 21:00 (NS Flush) 2 ml UNSCH PRN IV FLUSH 11/02/16 16:30 (Mylicon Chew) 80 mg QID PRN PO 11/02/16 16:30 (Tylenol) 650 mg Q6H PRN PO 11/02/16 16:30 (Motrin) 600 mg Q6H PRN PO 11/02/16 16:30 11/05/16 08:50 (Percocet 5-325 Mg) 1 tab Q4H PRN PO 11/02/16 16:30 11/03/16 15:18 (Percocet 5-325 Mg) 2 tab Q4H PRN PO 11/02/16 16:30 (Micheline-Colace) 2 tab Q12H PRN PO 11/02/16 16:30 11/05/16 08:48 (Ambien) 5 mg HS PRN PO 11/02/16 16:30 (Zofran Inj) 4 mg Q6H PRN IV PUSH 11/02/16 16:30 11/03/16 15:17 Assessment/Plan Assessment and Plan 26yo with iup at 40w5d desired iol at term, S/P primary LSTC for NRFHR, POD#3 1) attempted IOL at term 2) lsil pap- pp repeat 3) gbs neg 4) mild MVP- no prophy indicated 5) baby- female, doing well Discharge Planning pod3 Attending Attestation pt seen by Marquita Marcelino MD November 05, 2016 10:04
[2016-11-05] MEDS ORDERED: IBUP-232 PO (10:05)
== END 2016-11-05 10:59 | disposition home or self-care (01) | DRG 766 ==
LOC: H2EB 19:59 → H1EA 11-02 17:48
PROVIDERS: ADMIT Obstetrics & Gynecology; ATTEND Obstetrics & Gynecology
PROC: 3E033VJ Introduction of Other Hormone into Peripheral Vein, Percutaneous Approach (ICD-10-PCS; 2016-11-01)
PROC: 10D00Z1 Extraction of Products of Conception, Low, Open Approach (ICD-10-PCS; principal; 2016-11-02)
PROC: 00HU33Z Insertion of Infusion Device into Spinal Canal, Percutaneous Approach (ICD-10-PCS; 2016-11-02)
PROC: 3E0R3CZ (ICD-10-PCS; 2016-11-02)
DX: O99.42 Diseases of the circulatory system complicating childbirth (principal); I34.1 Nonrheumatic mitral (valve) prolapse; O32.9XX0 Maternal care for malpresentation of fetus, unspecified, not applicable or unspecified; O76 Abnormality in fetal heart rate and rhythm complicating labor and delivery; R11.2 Nausea with vomiting, unspecified; O69.81X0 Labor and delivery complicated by cord around neck, without compression, not applicable or unspecified; Z37.0 Single live birth; Z3A.40 40 weeks gestation of pregnancy
CPT/HCPCS: 59025; 81001; 82805; 85025; 86850; 86900; 86901; 87086; 88307; J0131; J0690; J1170; J2175; J2274; J2405; J2590; J3105; J7120